=== PATIENT | female | born 1960 | race Caucasian/White ===

== ENCOUNTER 2016-11-12 08:53 | Observation (INO) | payer BC ==
[2016-10-21 08:07] VITALS: BMI 48.0
--- NOTE | 2016-10-22 14:22 | PAT Medication Instructions ---
Service Date Oct 22, 2016. Current Home Medication List Benazepril (Lotensin), 20 MG PO QAM Clonazepam (Clonazepam), 1.5 MG PO HS PRN for RESTLESS LEGS Cyclobenzaprine Hcl (Flexeril), 10 MG PO TID PRN for Pain Gabapentin (Neurontin), 300 MG PO TID Insulin Aspart (Novolog Flexpen), SQ DIRECTED Insulin Glargine (Lantus Solostar Pen), 60 UNITS SQ HS OR UD Metformin Hcl (Glucophage), 1,500 MG PO QPM Metformin Hcl (Glucophage), 1,000 MG PO QAM Montelukast Sodium (Montelukast Sodium), 1 TAB PO QAM Naproxen (Naprosyn), 500 MG PO BID Omeprazole (Prilosec), 20 MG PO QAM Ropinirole (Requip), 3 MG PO 1-3 HOURS HS Simvastatin (Zocor), 40 MG PO QPM Tramadol (Ultram), 100 MG PO QAM Medication Instructions For Your Scheduled Surgery Naproxen (Naprosyn), 500 MG PO BID (patient will check with surgeon for instructions) - Hold the following medications 48 hours prior to surgery: Metformin Hcl (Glucophage) - Hold the following medications evening prior to surgery: Ropinirole (Requip), 3 MG PO 1-3 HOURS HS - Hold the following medications the morning of surgery: Insulin Aspart (Novolog Flexpen), SQ DIRECTED Cyclobenzaprine Hcl (Flexeril), 10 MG PO TID PRN for Pain Benazepril (Lotensin), 20 MG PO QAM - Take the following medications the morning of surgery with a sip of water: Tramadol (Ultram), 100 MG PO QAM (can take up to four hours prior to surgery if needed) Omeprazole (Prilosec), 20 MG PO QAM Montelukast Sodium (Montelukast Sodium), 1 TAB PO QAM Gabapentin (Neurontin), 300 MG PO TID (if needed) - Take the following medications as scheduled the night before surgery: Simvastatin (Zocor), 40 MG PO QPM Insulin Glargine (Lantus Solostar Pen), 60 UNITS SQ HS OR UD Gabapentin (Neurontin), 300 MG PO TID Cyclobenzaprine Hcl (Flexeril), 10 MG PO TID PRN for Pain Clonazepam (Clonazepam), 1.5 MG PO HS PRN for RESTLESS LEGS If you have any questions please call us at [phone] or [phone] ( [place]) or [phone]
--- NOTE | 2016-10-22 15:20 | DIAGNOSTIC IMAGING REPORT ---
CHEST PREADMISSION(PA/LAT) CLINICAL HISTORY: Preoperative evaluation. COMPARISON STUDY: No previous studies for comparison. FINDINGS: Lung volumes are mildly diminished. There is no pneumothorax or pleural effusion. Pulmonary vascularity is normal. Cardiac size is at the upper limits of normal. There is no evidence of pulmonary edema. IMPRESSION: 1. No acute cardiopulmonary findings. 2. Mildly diminished lung volumes. Electronically signed by: Silviano Delatorre M.D. 10/22/2016 3:19 PM Dictated Date/Time: 10/22/2016 3:18 PM
[2016-10-22 15:21] LABS: HEMATOCRIT 38.3 % (37-47); MEAN CORPUSCULAR HEMOGLOBIN 24.6 pg (25-34); MEAN CORPUSCULAR HGB CONC 31.6 g/dl (32-36); MEAN PLATELET VOLUME 9.9 fL (7.4-10.4); PLATELET COUNT 293 K/uL (130-400); RED BLOOD COUNT 4.91 M/uL (4.2-5.4)
[2016-10-22 16:04] LABS: BUN/CREATININE RATIO 21.7 (10-20); CALCIUM 9.2 mg/dl (8.5-10.1); CREATININE 0.99 mg/dl (0.60-1.20); POTASSIUM 4.7 mmol/L (3.5-5.1)
--- NOTE | 2016-11-11 13:13 | HISTORY & PHYSICAL EXAMINATION ---
DATE OF ADMISSION: 11/12/2016 CHIEF COMPLAINT: Right shoulder pain. HISTORY OF PRESENT ILLNESS: This 56-year-old female presents to the clinic today for preoperative history and physical. The patient states that on 08/24/2016 she slipped on her porch while walking her dog and landed on her right shoulder. The patient states that since that time she has had significant weakness in the right upper extremity and pain when placing it in certain positions. The patient states that she has received physical therapy with improved range of motion but states that she has not regained her strength. The patient denies any numbness or tingling in the right upper extremity or any decreased range of motion in her wrist or elbow joints. PAST SURGICAL HISTORY: Oral surgery and right knee arthroscopy. PAST MEDICAL HISTORY: Diabetes, hypertension, hyperlipidemia, restless legs syndrome, obesity and gastroesophageal reflux disease. FAMILY HISTORY: Father had coronary artery disease, myocardial infarction and stroke. Mother, noncontributory. ALLERGIES: Patient has no known drug allergies, but does have ENVIRONMENTAL ALLERGIES TO DOGS, GRASSES, MOLDS. CURRENT MEDICATIONS TAKEN: NovoLog insulin via sliding scale, tramadol 50 mg each morning as needed for pain, naproxen 500 mg by mouth twice daily as needed for pain, Lantus 60 units q. p.m., benazepril 5 mg daily, Requip 1 mg oral tablet 2 tabs daily, gabapentin 300 mg oral caps 1 cap 3 times daily, clonazepam 1 mg oral tablet 1-1/2 tablets daily, Prilosec 20 mg oral capsule 1 cap daily, simvastatin 40 mg oral tablet 1 tablet at bedtime, metformin 1000 mg q.a.m. and 1500 mg q.p.m., Singulair 40 mg 1 tab daily. SOCIAL HISTORY: The patient denies any history of smoking or illicit drug use. States that she rarely consumes alcohol. PHYSICAL EXAMINATION: SKIN: The patient's skin is normal in appearance. No open skin lesions or discharge. EYES: Pupils are equal and reactive to light and accommodating. Extraocular movements are intact. EARS: Canals are clear of cerumen. Tympanic membranes are intact bilaterally with no bulging or effusion. NOSE: Turbinates are pink and boggy in appearance with some mild clear rhinorrhea. THROAT: Posterior oropharynx is clear without signs of edema, erythema or exudate. CARDIOVASCULAR: The patient has a regular rate and rhythm with no murmurs or gallops appreciated. LUNGS: Auscultation of the lung barnes reveals clear breath sounds throughout with no wheezing, rales or rhonchi. ABDOMEN: Obese, nondistended, nontender with normoactive bowel sounds throughout. EXTREMITIES: Right shoulder. The patient is able to forward flex the knee up to 90 degrees, with slight resistance there is notable weakness. The patient has a positive [place]'s test pointing downwards to 0 and 30 degrees. She has a positive empty can test, positive subscapularis liftoff test, positive internal and external rotation test, negative Woody-Mayur impingement test, negative Neer's impingement test, negative sulcus sign, negative load shift test, negative apprehension relocation test, but does have a positive cross arm test. The patient has moderate tenderness to palpation over the glenohumeral groove, biceps tendon and posterior shoulder musculature. However, there is no edema, erythema, ecchymosis, warmth or palpable bony deformity. The patient does have mild crepitation with active-passive range of motion of the right shoulder joint. Otherwise, she is able to reach terminal flexion and extension of her right elbow, has full range of motion in her right wrist and her program/music director strength is equal bilaterally. The patient is neurovascularly intact in the right upper extremity. Peripheral pulses are palpable and her capillary refill is brisk. All other extremities are normal in appearance, appropriate range of motion and strength. NEUROLOGIC: Cranial nerves II through XII are intact with no motor or sensory deficit. PSYCHOLOGICAL AND GENERAL: The patient is alert and oriented x3 with proper grooming and hygiene. DIAGNOSIS: Right shoulder rotator cuff tear. PROCEDURE: Arthroscopic right shoulder rotator cuff repair; biceps tenotomy. RADIOGRAPHIC IMAGING: MRI of the right shoulder shows a tear of the upper portion of the subscapularis, a large retracted tear of the supraspinatus and infraspinatus with a high riding right humeral head. PLAN: The patient is scheduled to undergo this procedure with Dr. Cheko Gomez at the [facility] on 11/12/2016. Risks and complications of the surgery such as infection, bleeding, pain, scarring, nerve and blood vessel damage, weakness, wound problems, stiffness, incomplete relief of symptoms, heart attack, stroke, , hardware failure, fracture, recurrent tear and arthritis were explained to the patient and she understands and agrees. Written consent to perform the procedure was obtained. We will also obtain a preoperative EKG, CBC, CMP and medical clearance from the patient's primary care provider, Dr. Shields. The patient has already had her preoperative anesthesia clearance performed at the hospital and has had the necessary testing done prior to that appointment. The patient's postoperative followup with Dr. Gomez is scheduled for 11/19/2016 at 9:15 a.m. Her initial physical therapy appointment in our clinic will be scheduled 4-5 days after the surgical procedure. The patient states that she will most likely continue her physical therapy in our clinic. The patient was given a prescription for Orma for postoperative pain control. PDMP was checked and the patient has no red flags raised that would prevent us from providing the patient with narcotic medication for postoperative pain control. The patient verbalized understanding of all information provided at her visit, thanked us for the care she has received and states that if she has questions or concerns prior to the procedure she will contact us accordingly.
[~2016-11-12] VITALS: Ht 157.5 cm; Wt 120.5 kg
[2016-11-12] VITALS (7 sets, daily range): BP systolic 114–157; BP diastolic 74–99; PULSE 93–122; TEMP 36.4–36.9; O2SAT 94–96; Ht 157.5 cm; Wt 120.5 kg
[~2016-11-12 08:53] MED LIST: ATROPINE SULFATE 0.1 MG/ML 5ML SYR IV PRN; BENA20TA14 PO; CEFAZOLIN 3000 MG/65 ML D5W IV SCH; CYCL10TA6 PO; DEXAMETHASONE SOD INJ 4 MG/ML VIAL ONE; EpHEDrine SULFATE INJ 50 MG/ML AMP IV PRN; FENTANYL CITRATE INJ 50 MCG/1 ML 2 ML VIAL IV PRN; FENTANYL CITRATE INJ 50 MCG/1 ML 2 ML VIAL ONE; GABA300C19 PO; GLYCOPYRROLATE INJ 0.2 MG/ML VIAL ONE; INSUINJ4 SQ; KLN1X PO; LACTATED RINGER'S 1000ML 1,000 ML IV SCH; METF1000 PO; MIDAZOLAM HCL 1 MG/ML 2ML VIAL ONE; MONT1TAB5 PO; NAPR-1169 PO; NEOSTIGMINE METHYLSULFATE 5 MG/5 ML SYR ONE; NVLGI/PEN SQ; OMEP20CA59 PO; ONDANSETRON INJ 2 MG/ML 2 ML VIAL IV PRN; ONDANSETRON INJ 2 MG/ML 2 ML VIAL ONE; PROPOFOL IV EMULSION 10 MG/ML 20 ML VIAL IV ONE; ROCURONIUM BROMIDE 10 MG/ML 5 ML VIAL ONE; ROPI3TAB PO; ROPIVACAINE 0.5% 5 MG/ML 30 ML VIAL ONE; SIMV40TA4 PO; TRAM-10 PO
--- NOTE | 2016-11-12 10:02 | History & Physical Bridge Note ---
H&P Re-Evaluation Bridge Note: I have examined the patient, reviewed the History & Physical and in the interval since the performance of the History & Physical I have noted the following changes of clinical significance: No changes noted
--- NOTE | 2016-11-12 10:03 | DIAGNOSTIC IMAGING REPORT ---
RIGHT SHOULDER MIN 2 VIEWS ROUTINE CLINICAL HISTORY: pain Right pain COMPARISON: None. DISCUSSION: The bones and joint spaces appear intact. There is no evidence of fracture, dislocation or bony disease. There is no evidence for soft tissue swelling. IMPRESSION: Negative study. Electronically signed by: Celio Garcia M.D. 11/12/2016 10:02 AM Dictated Date/Time: 11/12/2016 10:02 AM
[2016-11-12] MEDS ORDERED: LIDOCAINE/EPINEPHRINE 1% 20 ML VIAL ONE ×2 (10:14→12:09)
[2016-11-12] MEDS ORDERED: FENTANYL CITRATE INJ 50 MCG/1 ML 2 ML VIAL ONE (10:51)
[2016-11-12] MEDS ORDERED: LIDOCAINE 1% W/EPI 1:100,000 INJ ONE (10:57)
[2016-11-12] MEDS ORDERED: ONDANSETRON INJ 2 MG/ML 2 ML VIAL ONE (14:02)
--- NOTE | 2016-11-12 14:21 | [facility] Post Operative Brief Note ---
Immediate Operative Summary Operative Date Nov 12, 2016. Pre-Operative Diagnosis Right shoulder rotator cuff tear Post-Operative Diagnosis Right shoulder rotator cuff tear Procedure(s) Performed Right Shoulder Arthroscopic Rotator Cuff Repair, Biceps Tenotomy Surgeon Dr. Cheko Gomez American Indian Studies Professor Surgeon(s) Tio Tariq PA-c Estimated Blood Loss 150 ML Findings massive cuff tear 5-6cm Specimens None per Dr. Gomez Anesthesia LMA with block Complication(s) None Disposition Recovery Room / PACU
[2016-11-12] MEDS ORDERED: MoRPHine SULFATE 2 MG/ML CARP IV PRN (14:45)
[2016-11-12] MEDS ORDERED: ONDANSETRON INJ 2 MG/ML 2 ML VIAL IV PRN (14:45)
[2016-11-12] MEDS ORDERED: CLONAZEPAM 1 MG TAB PO PRN (14:45)
[2016-11-12] MEDS ORDERED: MoRPHine SULFATE 4 MG/ML 1 ML CARP\\VIAL IV PRN (14:45)
[2016-11-12] MEDS ORDERED: METOCLOPRAMIDE HCL INJ 5 MG/ML 2 ML VIAL IV PRN (14:45)
[2016-11-12] MEDS ORDERED: CYCLOBENZAPRINE HCL 10 MG TAB PO PRN (14:45)
--- NOTE | 2016-11-12 14:54 | [facility] Operative Report ---
Operative Report Operative Date Nov 12, 2016. Pre-Operative Diagnosis Right shoulder rotator cuff tear Post-Operative Diagnosis same Procedure(s) Performed Arthroscopic Rt should rotator cuff repair; biceps tenotomy Surgeon Dr. Cheko Gomez Director Of Collections Surgeon(s) Tio Tariq PA-c Estimated Blood Loss 150 ML Findings Complex Right rotator cuff repair Specimens None per Dr. Gomez Anesthesia LMA with block Complication(s) None Disposition Recovery Room / PACU I attest to the content of the Intraoperative Record and any orders documented therein. Any exceptions are noted below.
--- NOTE | 2016-11-12 15:21 | Anesthesiology Progress Note ---
Anesthesia Post Op Note Date & Time Nov 12, 2016 at 15:21 Vital Signs Pain Intensity: 0 Vital Signs Past 12 Hours Date Time Temp Pulse Resp B/P Pulse Ox O2 Delivery O2 Flow Rate FiO2 11/12/16 15:10 36.5 88 20 133/65 95 Room Air 11/12/16 15:00 97 24 115/88 95 Room Air 11/12/16 14:50 90 24 118/80 100 Mask 10 11/12/16 14:40 87 24 131/62 100 Mask 10 11/12/16 14:34 36.2 87 24 128/65 99 Mask 10 11/12/16 09:32 36.8 99 20 147/92 95 Room Air Notes Mental Status: alert / awake / arousable, participated in evaluation Pt Amnestic to Procedure: Yes Nausea / Vomiting: adequately controlled Pain: adequately controlled Airway Patency, RR, SpO2: stable & adequate BP & HR: stable & adequate Hydration State: stable & adequate Anesthetic Complications: no major complications apparent
[2016-11-12] MEDS ORDERED: IV FLUIDS COMPLETED PRN (16:00)
[2016-11-12] MEDS ORDERED: GLUCOSE 10 TABS/TUBE PO PRN (17:00)
[2016-11-12] MEDS ORDERED: GLUCAGON FOR INJ 1 MG VIAL SQ PRN (17:00)
[2016-11-12] MEDS ORDERED: GLUCOSE 40% GEL 15 GM TUBE PO PRN (17:00)
[2016-11-12] MEDS ORDERED: D5W AND 1/2NSS + 20MEQ KCL 1,000 ML IV SCH (17:00)
[2016-11-12] MEDS ORDERED: DEXTROSE 50% 50 ML SYR IV PRN (17:00)
[2016-11-12] MEDS ORDERED: INSULIN ASPART 100 UNITS/ML 3 ML PEN SQ SCH (17:45)
[2016-11-12] MEDS ORDERED: CEFAZOLIN IV 3,000 MG in DEXTROSE 5% 50ML 50 ML IV SCH (18:00)
[2016-11-12] MEDS ORDERED: PHARMACY GLYCEMIC MGMT CONSULT PRN (18:31)
--- NOTE | 2016-11-12 19:23 | PROGRESS NOTE ---
DATE: 11/12/2016 She is sitting up in the chair. Her pain is well-controlled. She has numbness and weakness of her left foot since surgery. She is afebrile. Vital signs are stable. Her blood sugars are running a little bit high. Her metformin has been held and the glycemic management for pharmacy has been consulted. Her sling was readjusted. She has a continued nerve block on the right arm. Radial pulse is 1+. She has normal knee flexion and extension strength. There is numbness in the front and back of the leg, top and bottom of the foot, mostly on the bottom of the foot. She can dorsiflex her foot with 4-/5 strength. Plantar flexion is 5-/5 strength. She has a 1+ dorsalis pedis pulse. There is no swelling or tenderness. Repair of right shoulder massive rotator cuff tear, left leg weakness and paresthesias. PLAN: Continue 23-hour observation for observation and management of her left leg numbness and weakness. Pain control. I discussed with her findings related to the rotator cuff surgery and plan for immobilization for the next month due to the large tear. Left foot problem likely secondary to positioning and should expect that this improves. She is to exert caution when she is up walking, so that she does not trip or fall. KATHIA
[2016-11-12] MEDS ORDERED: NURSING VERBAL MED ORDER ONE (20:45)
[2016-11-12] MEDS ORDERED: SIMVASTATIN 40 MG TAB PO SCH (21:00)
[2016-11-12] MEDS ORDERED: ROPINIROLE HCL 1 MG TAB PO SCH (21:00)
[2016-11-12] MEDS ORDERED: METFORMIN HCL 500 MG TAB PO SCH (21:00)
[2016-11-12] MEDS ORDERED: INSULIN GLARGINE SOLOSTAR 100 UNITS/ML 3 ML PEN SQ SCH (21:00)
[2016-11-12] MEDS: OXYCODONE HCL IR 5 MG TAB (IMMEDIATE RELEASE) PO PRN (21:39)
[2016-11-12] MEDS: GABAPENTIN 300 MG CAP PO SCH (21:39)
[2016-11-12] MEDS: KETOROLAC TROMETHAMINE 30 MG/ML VIAL IV. SCH ×2 (21:40→22:47)
--- NOTE | 2016-11-12 22:10 | Medical Student: [facility] ---
Operative Report Operative Date Nov 12, 2016. Pre-Operative Diagnosis Rotator cuff tear of right shoulder Post-Operative Diagnosis Rotator cuff tear of right shoulder Procedure(s) Performed Arthroscopic right shoulder rotator cuff repair with biceps tenotomy Surgeon Dr. Cheko Gomez MD Extension Course Counselor Surgeon(s) Tio Tariq PA-C Estimated Blood Loss 150 mL Findings Complex rotator cuff tear Specimens None Anesthesia LMA Complication(s) None Disposition Recovery Room / PACU
[2016-11-12] MEDS: HYDROmorphone INJ 0.5 MG/0.5 ML SYR IV PRN (23:09)
[2016-11-12 23:47] LABS: HEMATOCRIT 34.1 % (37-47); MEAN CELL VOLUME 77.3 fL (80-100); MEAN CORPUSCULAR HEMOGLOBIN 24.3 pg (25-34); MEAN CORPUSCULAR HGB CONC 31.4 g/dl (32-36); MEAN PLATELET VOLUME 9.3 fL (7.4-10.4); PLATELET COUNT 279 K/uL (130-400); RED BLOOD COUNT 4.41 M/uL (4.2-5.4); WHITE BLOOD COUNT 18.35 K/uL (4.8-10.8)
[2016-11-13 00:07] LABS: BLOOD UREA NITROGEN 17 mg/dl (7-18); BUN/CREATININE RATIO 13.4 (10-20); CALCIUM 8.2 mg/dl (8.5-10.1); CARBON DIOXIDE 27 mmol/L (21-32); CHLORIDE 103 mmol/L (98-107); GLUCOSE 205 mg/dl (70-99); MAGNESIUM 1.6 mg/dl (1.8-2.4); POTASSIUM 4.1 mmol/L (3.5-5.1); SODIUM 140 mmol/L (136-145)
[2016-11-13 00:09] VITALS: BP 135/63; PULSE 118; TEMP 36.8; O2SAT 92
[2016-11-13] MEDS: SODIUM CHLORIDE 0.9% 1000ML 1,000 ML IV SCH ×2 (00:37→07:49)
[2016-11-13] MEDS: OXYCODONE HCL IR 5 MG TAB (IMMEDIATE RELEASE) PO PRN ×3 (01:53→11:53)
[2016-11-13] MEDS ORDERED: INSULIN ASPART 100 UNITS/ML 3 ML PEN SC ONE (02:00)
[2016-11-13] MEDS: KETOROLAC TROMETHAMINE 30 MG/ML VIAL IV. SCH ×2 (03:38→10:03)
[2016-11-13 03:59] VITALS: BP 125/76; PULSE 104; TEMP 36.8; O2SAT 95
[2016-11-13] MEDS: HYDROmorphone INJ 0.5 MG/0.5 ML SYR IV PRN (05:26)
--- NOTE | 2016-11-13 07:11 | CONSULTATION REPORT ---
DATE OF CONSULTATION: 11/12/2016 PRIMARY CARE PHYSICIAN: Dr. Marroquin. CONSULT REQUESTED BY: Dr. Gomez for medical management of acute tachycardia. HISTORY OF PRESENT COMPLAINT: She is a 56-year-old female with significant past medical history including depression, diabetes type 2, hyperlipidemia, hypertension, migraine, apparently underwent right total shoulder arthroplasty today by Dr. Gomez. She has had preop evaluation including lab work, x-rays, EKG and stress echo, which were unremarkable. Following surgery, she complained of lots of pain in the right shoulder area, and according to her, she did not get enough pain medications, and she was seen by ortho today and was advised for medical consult because of probable irregular heartbeat with tachycardia and some chest pain associated with it. When asking questions, the patient was in pain, almost crying, did not have any chest pain, any palpitation or any shortness of breath, nausea or vomiting associated with it. EKG showed sinus tachycardia. PAST MEDICAL HISTORY: Significant for diabetes type 2, depression, hypertension, hyperlipidemia, migraine, and history of excessive menstruation. PAST SURGICAL HISTORY: Significant for excision of hyperplastic tissue, diabetic eye examination, knee arthroscopy, biopsy of the uterine lining, those were unremarkable. FAMILY HISTORY: Nothing significant. SOCIAL HISTORY: She is . She is a former smoker. She uses alcohol socially and she has been reasonably ambulant. ALLERGIES: MAO INHIBITORS. MEDICATIONS: As an outpatient, she has been on Klonopin 1 mg tablet 1.5 tab at bedtime, phentermine 37.5 daily, Topamax 25 mg 2 times daily, Xanax 1 mg tablet before MRI or procedure, insulin 60 units daily at bedtime, metformin 1000 mg daily, NovoLog as directed, tramadol 50 mg 2 tablets by mouth every 6 hours as needed, Neurontin 300 mg daily, simvastatin 40 mg daily, Lotensin 20 mg daily, naproxen 500 mg 2 times daily, omeprazole 20 mg daily, Ropinirole 3 mg daily, Singulair 10 mg daily, Flexeril 10 mg daily. PHYSICAL EXAMINATION: GENERAL: In the medical floor, she is still having some pain in the right shoulder area. VITAL SIGNS: Temperature 36.9, pulse is 122 and regular, blood pressure 139/89, saturation 94% on room air. HEENT: Unremarkable. NECK: Supple. No JVD, no bruit. CHEST: Clear to auscultate bilaterally. She does have a sling on the right shoulder status post right shoulder surgery. HEART: S1, S2 regular, no murmur. ABDOMEN: Soft, benign, nontender. EXTREMITIES: Negative for any edema. MUSCULOSKELETAL: No acute arthritis. Rest of the right shoulder was not examined. LABORATORY DATA: Noted from 10/22/2016, CBC and PRP unremarkable. EKG and stress test unremarkable too. IMPRESSION AND PLAN: 1. Postoperative tachycardia, most likely secondary to pain induced and/or dehydration and anxiety. We will get blood work including troponin and TSH, and we will start IV fluid and keep pain medications. Doubt any atrial fibrillation and doubt any acute coronary syndrome. 2. Status post right shoulder replacement. Management will be as per orthopedics. 3. Diabetes type 2. Continue with current treatment plan. 4. Hypertension. Blood pressure seems to be stable. Continue current medications. 5. Gastrointestinal prophylaxis with Protonix. 6. Deep venous thrombosis prophylaxis as per orthopedics. Thank you for this consultation. I will be following this patient with you during this hospitalization. KATHIA
[2016-11-13 07:50] VITALS: BP 135/100; PULSE 80; TEMP 36.7; O2SAT 94
[2016-11-13] MEDS ORDERED: INSULIN ASPART 100 UNITS/ML 3 ML PEN SC SCH (08:00)
[2016-11-13] MEDS ORDERED: INSULIN ASPART 100 UNITS/ML 3 ML PEN SQ SCH ×2 (08:30→12:30)
--- NOTE | 2016-11-13 08:36 | Orthopedic Progress Note ---
Orthopedic Progress Note Date of Service Nov 13, 2016. Subjective Post OP Day: 1 Reports: feeling well, pain controlled w PO medications, Denies: SOB, calf pain , chest pain, complaints, light headedness, nausea / vomiting, using CONVERTIBLE POWER SHOVEL OPERATOR Objective N/V intact, capillary refill less than 2 sec., dressing C/D/I, incision C/D/I, A &O x3, CMS intact Good finger dexterity in Rt hand. Able to resist distraction and compression of digits. Able to resist distraction of pincer grasp. Full ROM of wrist. Decreased gin operator strength in Rt hand compared to Lt. ROM and strength at elbow and shoulder not tested. Mild tenderness to palpation over incision site but no active drainage. Date Time Temp Pulse Resp B/P Pulse Ox O2 Delivery O2 Flow Rate FiO2 11/13/16 07:50 36.7 80 20 135/100 94 Room Air 11/13/16 07:25 Room Air 11/13/16 03:59 36.8 104 16 125/76 95 Room Air 11/13/16 00:40 Room Air 11/13/16 00:09 36.8 118 16 135/63 92 Room Air 11/12/16 22:04 122 11/12/16 18:57 36.9 122 16 139/89 94 Room Air 11/12/16 17:47 36.4 115 18 154/85 96 Room Air 11/12/16 16:45 36.4 106 18 157/99 96 Room Air 11/12/16 16:15 36.4 95 16 115/77 96 Room Air 11/12/16 15:45 36.5 93 16 114/74 96 Room Air 11/12/16 15:45 96 Room Air 11/12/16 15:45 Room Air 11/12/16 15:20 36.2 94 20 124/74 97 Room Air 11/12/16 15:10 36.5 88 20 133/65 95 Room Air 11/12/16 15:00 97 24 115/88 95 Room Air 11/12/16 14:50 90 24 118/80 100 Mask 10 11/12/16 14:40 87 24 131/62 100 Mask 10 11/12/16 14:34 36.2 87 24 128/65 99 Mask 10 11/12/16 09:32 36.8 99 20 147/92 95 Room Air Laboratory Results 24 Hours: Test 11/12/16 23:40 Hematocrit 34.1 % Hemoglobin 10.7 g/dL Assessment & Plan Assessment: Day 1 s/p Rt rotator cuff repair / biceps tenotomy Plan: Dressing changed this AM Cont PO meds for pain control Cont use of sling for support and comfort Outpatient PT/OT as previously instructed. Cont to ice extremity. Cont ROM in finger/hand/wrist to prevent stiffness. Patient would like a Diflucan tablet due to fact that she gets severe yeast infections from ABX (order placed for 150 mg tab) Will discuss findings with Dr. Gomez; Probable discharge later today.
[2016-11-13] MEDS: GABAPENTIN 300 MG CAP PO SCH (08:42)
[2016-11-13] MEDS ORDERED: FLUCONAZOLE 50 MG TAB PO ONE (08:45)
[2016-11-13] MEDS ORDERED: METFORMIN HCL 500 MG TAB PO SCH (09:00)
[2016-11-13] MEDS ORDERED: PANTOprazole SOD 40 MG TAB PO SCH (09:00)
[2016-11-13] MEDS ORDERED: MONTELUKAST SOD 10 MG TAB PO SCH (09:00)
[2016-11-13] MEDS ORDERED: TRAMADOL HCL 50 MG TAB PO SCH (09:00)
[2016-11-13] MEDS ORDERED: ENALAPRIL MALEATE 10 MG TAB PO SCH (09:00)
[2016-11-13 10:21] VITALS: O2SAT 97
[2016-11-13 10:40] VITALS: BP 135/100; PULSE 80; TEMP 36.7; O2SAT 97
--- NOTE | 2016-11-13 10:54 | Discharge Instructions ---
Discharge Instructions Admission Reason for Admission: Right Shoulder Rotator Cuff Tear Discharge Discharge Diagnosis / Problem: same as above Discharge Goals Goal(s): Decrease discomfort, Improve function, Increase independence Activity Recommendations Activity Limitations: as noted below Lifting Limitations: until after follow-up appointment Exercise/Sports Limitations: until after follow-up appointment May Resume Sexual Activity: after follow-up appointment Shower/Bathe: tomorrow, keep incision dry Driving or Machine Use: no driving until cleared by applied behavior specialist Weightbearing Status: Right non-weightbearing (No lifting with Right upper extremity) . Instructions / Follow-Up Instructions / Follow-Up The following are instructions to follow after "Shoulder Surgery" including, Acromioplasty, Rotator Cuff Repair and Instability Surgery ACTIVITY RECOMMENDATIONS: * Minimize activity after surgery. * No excessive walking, jogging, sports or laboring. * Return to activity is individualized depending on the patient and type of surgery. * Driving is not permitted until at least your first post operative visit. Please ask your doctor when it is safe to resume driving. * Expect increased discomfort with increased activity. Continue to ice the shoulder as needed. SCHOOL/WORK RECOMMENDATIONS: * You may return to sedentary work or school when you are feeling more comfortable. This is usually 3-7 days after surgery. MEDICATIONS: * You will have a prescription for pain medication and an anti-inflammatory medication after surgery. * Use the pain medication for severe pain and the anti-inflammatory for less severe pain. Once the pain medication has run out, try to use the anti-inflammatory medication. If this is not effective, contact the office for assistance. * The pain medication may cause nausea, constipation and drowsiness. You should see how they affect you before driving or similar activity. * The anti-inflammatory medication may cause stomach upset and bleeding. If this occurs let your doctor know immediately . * Take a stool softener like Colace or a laxative like Senokot to prevent constipation. DIET: * Resume previous diet. SPECIAL CARE: ICE: You have the option of an ice cooler, gel packs or ice bags. * If you have an ice cooler, refer to the instructions for that device. The ice cooler may be used continuously. * If you do not have an ice cooler, you will need to use ice bags or gel packs. Do not apply ice directly to the skin. Use a thin dressing or lizbeth shirt between the skin and ice bag. Apply ice for 20-30 minutes and repeat every 2-4 hours. This is especially important for the first 7-10 days after surgery. Once the pain improves, use ice as needed. ELEVATION: * You may be more comfortable sleeping in an upright position. Use the sling to elevate your arm. DRESSING: * Your dressing will be changed at your first therapy appointment approximately 4-5 days after surgery. Band-aids, tape strips or gauze may be applied. You may then change your dressing daily. * Reapply dressing followed by the EBIce cooling pad (if chosen) and then the sling. * Always wash your hands prior to touching the incision area. * Once the stitches are removed, you may leave the wound open to air or cover with gauze. * Expect some bloody drainage for the first few days after surgery. * Leave the tape strips, if present, in place for 5-7 days. * Band-aids and gauze may be changed daily. * There may be a gauze pad in your armpit area. This can be changed daily or replaced by a dry washcloth. SLING/BRACE: * You will need to use a sling or brace after surgery. The length of time the sling is used is dependent upon the type of surgery performed. * Arthroscopic Acromioplasty requires use of the sling for 2-4 weeks for comfort. * Labral procedures and Rotator Cuff Repairs require use of the sling for a longer period of time. Please check with your doctor prior to discontinuing the sling. BATHING: * You may shower or sponge-bathe immediately after surgery. The post operative shoulder dressing is mostly water-tight. You may shower right over this dressing, but be reasonably careful not to get the gauze or incision wet. * Once the dressing has been changed on the fourth or fifth day after surgery, you may shower and get the incision wet. * Wash with regular soap and water. * Do not bathe (submerge the incision), soak, swim or use a hot tub until the incision is completely healed over with normal skin and the doctor has given the OK to proceed. * There is no need to apply any ointments, powders or salves to your incision. * Do not apply alcohol or hydrogen peroxide directly to the incision. * Diluted peroxide (50:50 mixture with sterile saline) may be used to clean dried blood from around the incision area. THERAPY: * You will begin therapy four or five days after surgery. * Organized therapy with the therapist is important for the first 2-4 months after surgery depending on the type of procedure. During that time you will attend therapy 1-3 times per week. * You will also need to do daily exercises for range of motion and strength as instructed. * Patients who have a Capsular Shift Procedure will need to abide by temporary range of motion limitations. * Patients having Rotator Cuff Surgery are not allowed to actively lift their arms until 4-6 weeks after surgery. * Please check with your doctor regarding appropriate motion restrictions. FOLLOW UP VISIT: * If not already scheduled, please call the office at to schedule a follow-up appointment for 10 days after surgery and monthly thereafter. Current Hospital Diet Patient's current hospital diet: Diabetes Type 2 Diet Discharge Diet Recommended Diet: Diabetes Type 1 Diet Procedures Procedures Performed: Right Shoulder Arthroscopic Rotator Cuff Repair, Biceps Tenotomy Pending Studies Studies pending at discharge: no Medical Emergencies . Who to Call and When: Medical Emergencies: If at any time you feel your situation is an emergency, please call 911 immediately. . Non-Emergent Contact Non-Emergency issues call your: Primary Care Provider Call Non-Emergent contact if: temperature is above 101.5, your pain is not controlled, wound has increased drainage, you have any medication questions . "Provider Documentation" section prepared by Tio Tariq. VTE Core Measure Inpt VTE Proph given/why not?: Treatment not indicated [place] Drug Monitoring Program Search Results: no issues identified
--- NOTE | 2016-11-13 10:57 | OPERATIVE REPORT ---
DATE OF OPERATION: 11/13/2016 PREOPERATIVE DIAGNOSIS: Massive rotator cuff tear of the right shoulder. POSTOPERATIVE DIAGNOSIS: Same. PROCEDURE: Biceps tenotomy and arthroscopic repair of massive rotator cuff tear. SURGEON: Dr. Gomez. BREAKER OFF: MARY ANNE Tariq PA-C. No resident or fellow available. SECOND LAPPER: Flor Vallejo. ANESTHESIA: Interscalene block with general anesthetic. INDICATIONS FOR PROCEDURE: The patient is a 56-year-old female with a long history of shoulder pain aggravated recently by a fall. MRI reveals a large tear of the rotator cuff involving all of the supraspinatus and infraspinatus as well as part of the subscapularis. She has a fatty infiltration and atrophy. The spinatus tendons are retracted to the level of the glenoid and there was questionable inability to repair. Treatment options, risks and benefits are discussed and she elected to proceed with exploration and operative intervention as indicated. OPERATION AND FINDINGS: PROCEDURE IN DETAIL: Informed consent was obtained. The patient identified as Berhane White. She identified the operative site as the right shoulder. I marked it with my initials. A preop surgical time-out was performed. A preop dose of IV antibiotics was given. She was taken to the operating room, positioned supine on the OR table. The anesthetic was administered. While awake, she was positioned beach chair for appropriate positioning. She was then returned supine for the anesthetic. After the anesthetic was administered, she was positioned beach chair. The neck was held in neutral alignment. The mastoid processes were padded. The torso was secured to the table. The ankles were padded. The hips and knees were flexed. The exam under anesthesia revealed equal range of motion to the opposite side. The right upper extremity was prepped and draped in the usual sterile fashion. 1% lidocaine with epinephrine was injected into the subacromial space preoperatively. DVT prophylaxis intraoperatively with foot pumps, postoperatively with early mobility. A posterior soft spot viewing portal was established followed by an anterior mid glenoid working portal. There was a tear of the upper 1.5 to 2 cm of the subscapularis tendon. The biceps tendon looked normal and was tenotomized. The articular surfaces were normal. The labrum showed some minimal fraying but no detachment. There was no SLAP lesion. The axillary pouch and anterior and posterior ligaments appeared to be intact. The bare area and the posterior cuff was intact. There was a larger retracted tear of the infraspinatus and supraspinatus. The scope was placed in the subacromial space. Three accessory lateral portals were created. The subscapularis tendon was identified and worked on first. I released the adhesions on the superficial surface of the tendon and this tear was in situ and not notably retracted. I prepared the bony surface with a bur and curette. A 5.5 mm PEEK corkscrew anchor was inserted into the upper facet of the subscapularis and then horizontal mattress stitches were passed through the tendon using the Scorpion FastPass. Sutures were then tied with modified Fletcher backed up with reverse half hitches on alternating posts for a secure repair. Attention was turned to the spinatus tendon tear. Extensive mobilization was performed on the undersurface using arthroscopic biter just to release only the capsule. Traction sutures were utilized. The bursal surface was thoroughly mobilized back to the scapular spine using shaver, biter and thermal ablation as necessary. The teres minor and perhaps small part of the infraspinatus were intact. I identified the coracoid, debrided the rotator interval and debrided and released the coracohumeral ligament. This improved the mobility of the supraspinatus tendon to the point where it could comfortably reach the central to mid portion of the rotator cuff attachment. The tear was a deep crescent tear, perhaps with some L component to it. I mobilized both surfaces of the rotator cuff. I was able to reapproximate the supraspinatus to where it belonged. I was able to grab the infraspinatus and comfortably advance it anterolaterally for repair. I then inserted a suture anchor in the central portion of the infraspinatus facet, a 5.5 PEEK suture, PEEK corkscrew anchor and used the same technique to repair and tie it in a tension free fashion. I then did the same thing for the supraspinatus using one 5.5 mm PEEK corkscrew anchor. This left a small spacing between the 2 tendons, a shallow U which I then repaired using a 2.9 JuggerKnot anchor imbricating the tendons together and securing them down to the tuberosity. I did not think that a lateral row/double row repair was necessary or indicated based upon tendon tension quality. I could only oppose the tendons to the medial or middle portion of the facet and did not get full complete coverage which would have required excessive tension. The repair was stable. The tendon quality was diminished but not poor. The shaver was run through the shoulder to meat pickler loose debris. I did not perform an acromioplasty to preserve the coracoacromial arch. Percutaneous technique was utilized to insert all suture anchors with the accessory incisions made as needed. A thorough bursectomy was performed. Hemostasis was performed with electrocautery. The portals were closed with 4-0 nylon. An ABD was placed into the armpit along with an UltraSling and a soft sterile dressing. The patient was awakened from anesthesia without difficulty, taken to recovery room in stable condition. There were no specimens or complications. Counts were correct at the end of case. Blood loss was perhaps 100 mL. At the conclusion of the operation, I spoke to patient's family and informed them of my findings. Postoperative instructions were given. She had to be done at the hospital due to her BMI. We will offer her a 23-hour observation stay for pain control and observation. Plan for rehab will be immobilization for the first month due to the size of the tear which I estimate to be 5-1/2 to 6-1/2 cm. I attest to the content of the Intraoperative Record and any orders documented therein. Any exceptio ns are noted below.
--- NOTE | 2016-11-13 11:01 | PROGRESS NOTE ---
DATE: 11/13/2016 She is resting comfortably in bed. She did have a rough night with pain. She did have a minor fall where she bent her right wrist back. She had some shoulder pain but did not feel that she moved or damaged her shoulder at all. Her left leg is feeling better. Her pain is more controlled now. She is afebrile. Her vital signs are stable. Her pulse has decreased to 80. Her creatinine is minimally elevated. Her blood sugars have been running at about 200. She has sensation intact in her right hand without swelling. She has full movement of the fingers with normal sensation in median, radial and ulnar, motor and sensory functions, and she has intact 1+ radial pulse. Examination of the left leg reveals slight decreased sensation on the back of the left calf, slight decreased sensation on the top of the foot, and a little bit more altered sensation on the bottom of the foot. Her strength to knee flexion and extension, ankle and toe plantar flexion and dorsiflexion is has normal, perhaps a tiniest bit of weakness on ankle and toe EHL dorsiflexion. IMPRESSION: 1. Left leg paresthesias and weakness. 2. Right shoulder massive rotator cuff repair. PLAN: I think that her leg problem is due to positioning and is resolving. She should use a cane or a crutch under her left arm to help her walk if necessary, but I think that she has essentially normal strength, recovering her sensation, and she would be fine. She can be discharged home. She will follow up as scheduled. I went over her medications with her and things to watch out for including pain, swelling, fevers, numbness, any other problems or questions. She can only do hand, wrist and elbow movement, we are not doing any shoulder range of motion. Bathing instructions are given.
[2016-11-13 11:02] VITALS: BP 127/82
--- NOTE | 2016-11-13 12:15 | Medical Student: [facility] ---
Med Student Progress Note Date of Service Nov 13, 2016. Subjective Pt evaluation today including: conversation w/ patient, physical exam, lab review DM is a 56 year old female who presents following right shoulder rotator cuff repair on 11/12/16. She states her night was "miserable" due to fluctuating pain levels. At times, her pain level was well controlled but at other times, it was unbearable rating over a 10. She states the oxycodone would help alleviate pain for only 20 minutes but once Dilaudid was added, her pain levels were much more tolerable. As a result, she was only able to sleep on and off. In addition, she received an EKG last night because she was tachycardic due to anxiety from the pain. EKG depicted sinus tachycardia, age undetermined possible inferior infarct, and could not rule out age undetermined anterior infarct. Patient is eating and drinking fluids adequately. She is ambulating to urinate in the bathroom. She has not passed a bowel movement but has passed gas. When waking up from surgery, she noted some left leg paresthesias and numbness. She says this was gotten better over time and now only affects her left foot. The foot is painful at times when it touches other objects. On ROS, patient endorses a productive cough. Otherwise, she denies symptoms including headache, weakness, shortness of breath, chest pain, abdominal pain, changes in urinary habits, and changes in bowel habits. Review of Systems Constitutional: No fever, No weakness Respiratory: + cough, + sputum, No shortness of breath, No wheezing Cardiac: No chest pain, No palpitations Abdomen: No constipation, No diarrhea, No nausea, No pain Musculoskeletal: No muscle pain Female : No dysuria Neurologic: + numbness/tingling, No vertigo, No weakness Objective Vital Signs Date Time Temp Pulse Resp B/P Pulse Ox O2 Delivery O2 Flow Rate FiO2 11/13/16 11:02 127/82 11/13/16 10:40 36.7 80 20 97 Room Air 11/13/16 10:21 97 Room Air 11/13/16 07:50 36.7 80 20 135/100 94 Room Air 11/13/16 07:25 Room Air 11/13/16 03:59 36.8 104 16 125/76 95 Room Air 11/13/16 00:40 Room Air 11/13/16 00:09 36.8 118 16 135/63 92 Room Air 11/12/16 22:04 122 11/12/16 18:57 36.9 122 16 139/89 94 Room Air 11/12/16 17:47 36.4 115 18 154/85 96 Room Air 11/12/16 16:45 36.4 106 18 157/99 96 Room Air 11/12/16 16:15 36.4 95 16 115/77 96 Room Air 11/12/16 15:45 36.5 93 16 114/74 96 Room Air 11/12/16 15:45 96 Room Air 11/12/16 15:45 Room Air 11/12/16 15:20 36.2 94 20 124/74 97 Room Air 11/12/16 15:10 36.5 88 20 133/65 95 Room Air 11/12/16 15:00 97 24 115/88 95 Room Air 11/12/16 14:50 90 24 118/80 100 Mask 10 11/12/16 14:40 87 24 131/62 100 Mask 10 11/12/16 14:34 36.2 87 24 128/65 99 Mask 10 Physical Exam Comments: Physical Exam: General: WD/WN female in no apparent distress; sitting comfortably with right arm in sling Cardiovascular: Regular rate and rhythm with no murmurs, rubs, or gallops; Normal S1 and S2; No S3 or S4 heard Respiratory: Clear to auscultation bilaterally without wheezes, rales, or rhonchi Extremities: +1 right radial pulse, +3 left radial pulse, patient is able to move right distal upper extremity, asset protection specialist strength 5/5 in right and left hand, sensation intact distally of right upper extremity +2 dorsalis pedis pulse bilaterally Hip flexors, knee flexors, knee extensors, ankle dorsiflexion, EHL, ankle plantarflexion 5/5 strength of left leg Sensation intact in L2-S1 distribution of left leg Laboratory Results Last 24 Hours Test 11/12/16 14:35 11/12/16 17:50 11/12/16 20:40 11/12/16 23:40 Bedside Glucose 256 mg/dl 259 mg/dl 280 mg/dl White Blood Count 18.35 K/uL Red Blood Count 4.41 M/uL Hemoglobin 10.7 g/dL Hematocrit 34.1 % Mean Corpuscular Volume 77.3 fL Mean Corpuscular Hemoglobin 24.3 pg Mean Corpuscular Hemoglobin Concent 31.4 g/dl RDW Standard Deviation 45.0 fL RDW Coefficient of Variation 16.0 % Platelet Count 279 K/uL Mean Platelet Volume 9.3 fL Sodium Level 140 mmol/L Potassium Level 4.1 mmol/L Chloride Level 103 mmol/L Carbon Dioxide Level 27 mmol/L Anion Gap 10.0 mmol/L Blood Urea Nitrogen 17 mg/dl Creatinine 1.30 mg/dl Est Creatinine Clear Calc Drug Dose 61.1 ml/min Estimated GFR () 53.9 Estimated GFR (Non- 46.5 BUN/Creatinine Ratio 13.4 Random Glucose 205 mg/dl Calcium Level 8.2 mg/dl Magnesium Level 1.6 mg/dl Troponin I < 0.015 ng/ml Thyroid Stimulating Hormone (TSH) 1.220 uIu/ml Test 11/13/16 01:46 11/13/16 08:09 Bedside Glucose 198 mg/dl 227 mg/dl Diagnostics: EKG (11/12/16) Sinus tachycardia Possible inferior infarct, age undetermined Can not rule out anterior infarct, age undetermined Assessment and Plan Assessment and Plan: Assessment/Plan: Patient is a 56 year old female who presents following right shoulder rotator cuff repair. She is currently experiencing left leg numbness and paresthesias secondary to positioning during surgery. This will likely improve with time. WBC count is elevated likely due to stress from surgery. Patient has no other symptoms of infection. Patient will be discharged home today. She is scheduled to begin PT on 11/18/16.
[2016-11-14] MEDS ORDERED: NAPROXEN 250 MG TAB PO SCH (09:00)
--- NOTE | 2016-11-18 23:10 | DISCHARGE SUMMARY ---
ADMISSION DIAGNOSIS: Right shoulder massive rotator cuff tear. DISCHARGE DIAGNOSIS: Same plus neuropraxia of the left lower extremity. PROCEDURE: Right shoulder arthroscopic repair of massive rotator cuff tear and a biceps tenotomy. ATTENDING PHYSICIAN AND SURGEON: Dr. Gomez. BRIEF HISTORY: The patient is a 56-year-old female with a long history of right shoulder pain, exacerbated by a recent fall. She has clinical findings indicative of a rotator cuff tear, confirmed by MRI. She is taking the surgery for operative correction of possible repair. HOSPITAL COURSE: The patient was admitted for a 23-hour observation after surgery. She was required that it be done at the hospital due to her BMI. She was admitted postoperatively for control of her medical problems, including diabetes, hypertension and morbid obesity. She did well postoperatively, her pain was reasonably well controlled, she received a routine course of postop IV antibiotics, her arm was supported in a sling, DVT prophylaxis with mechanical devices and early mobility. Immobilization of the right shoulder was her therapy regimen. She did develop paresthesias and weakness of her left lower extremity, which were likely due to positioning. These are reflected in the medical record and there is gradual improvement of her paresthesias and near normal motor function at the time of her discharge. The hospital pharmacy was consulted for glycemic control. She was discharged home in good condition. She is to follow up with me as scheduled. If there are any problems with pain, fever, swelling, numbness and tingling or other problems or questions, go to the Emergency Room or call my office. She will resume her regular medications, including her diabetes meds. Also, take a stool softener and pain medication. She can do active movement of her hand, wrist and elbow, but she is not to be lifting or rotating her arm. Plan for mobilization of the right shoulder for a month followed by passive range of motion protocol. She will remain in an UltraSling. Bathing instructions were given.
== END 2016-11-13 13:02 | disposition home or self-care (01) ==
LOC: ENRESERVTM → ENRESERVDT → C.ACU 08:53 → C.3E 09:03
PROVIDERS: ADMIT Physical Medicine & Rehabilitation Sports Medicine; ATTEND Physical Medicine & Rehabilitation Sports Medicine
DX: S46.011A Strain of muscle(s) and tendon(s) of the rotator cuff of right shoulder, initial encounter (principal); W01.0XXA Fall on same level from slipping, tripping and stumbling without subsequent striking against object, initial encounter; I97.89 Other postprocedural complications and disorders of the circulatory system, not elsewhere classified; R00.0 Tachycardia, unspecified; E11.9 Type 2 diabetes mellitus without complications; I10 Essential (primary) hypertension; E78.5 Hyperlipidemia, unspecified; G25.81 Restless legs syndrome; E66.9 Obesity, unspecified; K21.9 Gastro-esophageal reflux disease without esophagitis; Z82.49 Family history of ischemic heart disease and other diseases of the circulatory system; Z82.3 Family history of stroke; Z79.4 Long term (current) use of insulin; Z79.899 Other long term (current) drug therapy

== ENCOUNTER → 2016-11-25 | Outpatient (CLI) | payer BC ==
[~2016-11-25] MED LIST changes: -ATROPINE SULFATE 0.1 MG/ML 5ML SYR IV PRN; -CEFAZOLIN 3000 MG/65 ML D5W IV SCH; -DEXAMETHASONE SOD INJ 4 MG/ML VIAL ONE; -EpHEDrine SULFATE INJ 50 MG/ML AMP IV PRN; -FENTANYL CITRATE INJ 50 MCG/1 ML 2 ML VIAL IV PRN; -FENTANYL CITRATE INJ 50 MCG/1 ML 2 ML VIAL ONE; -GLYCOPYRROLATE INJ 0.2 MG/ML VIAL ONE; -LACTATED RINGER'S 1000ML 1,000 ML IV SCH; -MIDAZOLAM HCL 1 MG/ML 2ML VIAL ONE; -NEOSTIGMINE METHYLSULFATE 5 MG/5 ML SYR ONE; -ONDANSETRON INJ 2 MG/ML 2 ML VIAL IV PRN; -ONDANSETRON INJ 2 MG/ML 2 ML VIAL ONE; -PROPOFOL IV EMULSION 10 MG/ML 20 ML VIAL IV ONE; -ROCURONIUM BROMIDE 10 MG/ML 5 ML VIAL ONE; -ROPIVACAINE 0.5% 5 MG/ML 30 ML VIAL ONE
== END | disposition home or self-care (01) ==
LOC: C.RDSM 12:00
PROVIDERS: ATTEND Physical Medicine & Rehabilitation Sports Medicine
DX: S46.011D Strain of muscle(s) and tendon(s) of the rotator cuff of right shoulder, subsequent encounter (principal); X58.XXXD Exposure to other specified factors, subsequent encounter

== ENCOUNTER → 2017-03-05 | Outpatient (CLI) | payer BC ==
[~2017-03-05] MED LIST changes: +GABA-1218 PO; -GABA300C19 PO
== END | disposition home or self-care (01) ==
LOC: C.RDSM 16:52
PROVIDERS: ATTEND Physical Medicine & Rehabilitation Sports Medicine
DX: M25.561 Pain in right knee (principal)